=== PATIENT | female | born 1940 | race African-American/Black ===

== ENCOUNTER 2017-07-01 12:40 | Outpatient (CLI) | payer MEDICARE ==
[2017-07-01] MEDS ORDERED: Gadobenate Dimeglumine 529 MG/1 ML (20ML VIAL) ONE (14:34)
== END 2017-07-01 12:41 | disposition home or self-care (01) ==
LOC: BICMRI 12:40
PROVIDERS: ATTEND Internal Medicine
DX: K76.89 Other specified diseases of liver (principal); R93.3 Abnormal findings on diagnostic imaging of other parts of digestive tract; N28.1 Cyst of kidney, acquired
CPT/HCPCS: 71045; 74183; A9579

== ENCOUNTER 2017-08-21 07:35 | Day surgery (SDC) | payer MEDICARE ==
[2017-08-20 09:10] VITALS: BMI 26.5
[~2017-08-21 07:35] MED LIST: FLU VACC TS2017-18 (>65YR) 0.5 ML SYRINGE IM ONE
[2017-08-21 08:17] LABS: #Basophils 0.1 thou/uL (0.0-0.2); #Eosinphils 0.2 thou/uL (0.0-0.7); #Lymphocytes 2.1 thou/uL (1.20-3.40); #Monocytes 0.7 thou/uL (0.11-0.59); #Neutrophils 3.1 thou/uL (1.40-6.50); %Basophils 1.1 % (0.0-1.0); %Eosinophils 3.8 % (0.0-10.0); %Lymphocytes 33.5 % (21.0-51.0); %Monocytes 10.5 % (0.0-10.0); %Neutrophils 51.1 % (42.0-75.0); Hemoglobin 12.2 g/dL (12.0-16.0); Mean Corpuscular HGB CONC 31.8 g/dL (32.0-36.0); Mean Corpuscular Hemoglobin 29.2 pg (27.0-31.0); Mean Corpuscular Volume 92.1 fl (81.0-99.0); Mean Platelet Volume 7.6 fL (7.4-10.4); Platelet Count 340 thou/uL (130-400); RBC Distribution Width 12.9 % (11.5-14.5); Red Blood Cell (RBC) Count 4.18 mill/uL (4.20-5.40); White Blood Cell (WBC) Count 6.2 thou/uL (4.8-10.8)
[2017-08-21 08:23] LABS: INR-International Normal Ratio 1.2; PTT 38.4 SEC (22.9-36.1); Prothrombin Time 15.1 SEC (12.0-14.7)
[2017-08-21] MEDS ORDERED: Fentanyl 100 MCG/2 ML VIAL ONE (09:24)
[2017-08-21] MEDS ORDERED: Midazolam HCl 2 mg/2 ml Vial ONE (09:24)
[2017-08-21] MEDS ORDERED: Sodium Bicarbonate 2.5 MEQ/5 ML VIAL ONE (09:24)
[2017-08-21 11:18] VITALS: BP 134/62; TEMP 97.9
[2017-08-21 13:38] LABS: Ref Lab Test Ordered CEA BF
[2017-08-21 13:39] LABS: Ref Lab Test Ordered CA 19-9 BF
--- NOTE | 2017-08-21 14:06 | CT ---
CT GUIDED RIGHT HEPATIC LOBE CYST BIOPSY AND ASPIRATION: TECHNIQUE: Informed consent was obtained. A time out was performed. The patient was placed in the left lateral decubitus position on the CT gantry table. A pre-procedure CT was obtained for guidance purposes on ly. The site overlying the lateral aspect of the complex cystic mass within the right hepatic dome w as marked. This site was prepped and draped in the usual sterile fashion. The patient underwent conscious sedation under the guidance of the radiology nurse. The patient rece ived 25 mcg of IV Fentanyl and 0.5 mg of IV Versed. The biopsy site was anesthetized utilizing buffered 1% Lidocaine. Under CT fluoroscopic guidance, a 19 gauge trocar needle was guided down into the complex cystic mass. Attempts were made to core biop sy the edwards of the mass lesion, as well as the complex internal septations seen on MR evaluation at the [facility], dated 07/01/2017. The core samples proved to be unfruitful. No s ignificant soft tissue was obtained for the core samples. Attempt was then made to provide a fine ne edle aspirate of the material. There were 11 mL of slightly greenish fluid removed from the cyst. T here was some scattered soft tissue debris within the aspirate. An additional attempt was made at th e aspirate to remove some more solid tissue. A cluster of the retained solid debris was submitted in formalin. Two separate aspirates, for a total of 11 mL, of fluid was submitted for cytology, as wel l as fluid analysis of CA19-9. The patient tolerated the procedure without difficulty. Post procedu re images demonstrated a small amount of gas seen within the complex cystic lesion. FINDINGS: Complex cystic lesion involving the right hepatic dome, as seen on the MRI examination of the abdomen , dated 07/01/2017, from the [facility]. There are additional prominen t simple cysts involving the liver. There are prominent simple cysts involving the kidneys. There a re nonobstructing calculi bilaterally. There are scattered vascular calcifications. IMPRESSION: Successful CT guided fine needle aspirate of the complex cystic mass within the right hepatic dome. POS: [facility]
--- NOTE | 2017-08-26 11:49 | CT ---
CT GUIDED RIGHT HEPATIC LOBE CYST BIOPSY AND ASPIRATION: TECHNIQUE: Informed consent was obtained. A time out was performed. The patient was placed in the left lateral decubitus position on the CT gantry table. A pre-procedure CT was obtained for guidance purposes on ly. The site overlying the lateral aspect of the complex cystic mass within the right hepatic dome w as marked. This site was prepped and draped in the usual sterile fashion. The patient underwent conscious sedation under the guidance of the radiology nurse. The patient rece ived 25 mcg of IV Fentanyl and 0.5 mg of IV Versed. The biopsy site was anesthetized utilizing buffered 1% Lidocaine. Under CT fluoroscopic guidance, a 19 gauge trocar needle was guided down into the complex cystic mass. Attempts were made to core biop sy the edwards of the mass lesion, as well as the complex internal septations seen on MR evaluation at the [facility], dated 07/01/2017. The core samples proved to be unfruitful. No s ignificant soft tissue was obtained for the core samples. Attempt was then made to provide a fine ne edle aspirate of the material. There were 11 mL of slightly greenish fluid removed from the cyst. T here was some scattered soft tissue debris within the aspirate. An additional attempt was made at th e aspirate to remove some more solid tissue. A cluster of the retained solid debris was submitted in formalin. Two separate aspirates, for a total of 11 mL, of fluid was submitted for cytology, as wel l as fluid analysis of CA19-9. The patient tolerated the procedure without difficulty. Post procedu re images demonstrated a small amount of gas seen within the complex cystic lesion. FINDINGS: Complex cystic lesion involving the right hepatic dome, as seen on the MRI examination of the abdomen , dated 07/01/2017, from the [facility]. There are additional prominen t simple cysts involving the liver. There are prominent simple cysts involving the kidneys. There a re nonobstructing calculi bilaterally. There are scattered vascular calcifications. IMPRESSION: Successful CT guided fine needle aspirate of the complex cystic mass within the right hepatic dome.
== END 2017-08-21 11:50 | disposition home or self-care (01) ==
LOC: ULT 07:35
PROVIDERS: ATTEND Internal Medicine
PROC: 0FB13ZX Excision of Right Lobe Liver, Percutaneous Approach, Diagnostic (ICD-10-PCS; principal; 2017-08-21)
DX: K76.89 Other specified diseases of liver (principal); Z79.899 Other long term (current) drug therapy; R94.5 Abnormal results of liver function studies
CPT/HCPCS: 36415; 47000; 77012; 85025; 85610; 85730; 87070; 87205; 88173; 88304; 88305; J2250; J3010

== ENCOUNTER 2018-07-06 09:48 | Outpatient (CLI) | payer MEDICARE ==
[2018-07-06] MEDS ORDERED: Gadobenate Dimeglumine 529 MG/1 ML (20ML VIAL) ONE (13:17)
--- NOTE | 2018-07-06 14:49 | MRI ---
MRI ABDOMEN WITH AND WITHOUT CONTRAST: Date: 07/06/18 HISTORY: R93.3 abnormal findings on GI tract. COMPARISON: MRI abdomen from 12/25/17 and 07/01/17, as well as a percutaneous biopsy of 08/21/17. FINDINGS: There is no significant interval size increase of the complicated cysts of the right lobe of the live r, involving hepatic segments VII and VIII, measures up to 9.1 cm in transverse dimension x 7.3 cm in AP dimension x 6.7 cm craniocaudad dimension. No internal enhancement of the septations. There is a large cyst in hepatic segment Rosa Maria and IVb, which is simple, measuring up to 8.7 cm, causin g mass effect upon the common hepatic duct with mild intrahepatic biliary dilatation in both the righ t and left biliary system. There are multiple smaller hepatic cysts scattered throughout the liver wi thout enhancement. The aortic contour is nonaneurysmal. Moderate atherosclerotic plaque. There are multiple renal cysts. There is a small perisplenic lymph node. In the uncinate process, there are two separate subcentimeter T2 hyperintense foci which are unchange d from the comparison examination. Background marrow signal is similar. IMPRESSION: 1. Similar appearance to the hepatic cysts with the previously aspirated hepatic segment and VII cysts unchanged in size with internal septations and debris may be a ruptured echinococcal cyst. 2. Large cyst hepatic Rosa Maria and IVb causing mass effect upon the common hepatic duct with mild intrahe patic left and right-sided biliary dilatation. No extrahepatic biliary dilatation. 3. Renal cysts. 4. Subcentimeter T2 hyperintense foci at the pancreatic head and uncinate process are unchanged. Fol low-up pancreatic protocol MRI in 1 year recommended. See our white paper. POS: [facility]
== END 2018-07-06 09:49 | disposition home or self-care (01) ==
LOC: BICMRI 09:48
PROVIDERS: ATTEND Internal Medicine
DX: R93.3 Abnormal findings on diagnostic imaging of other parts of digestive tract (principal); K76.89 Other specified diseases of liver; N28.1 Cyst of kidney, acquired
CPT/HCPCS: 74183; 82565; A9577

== ENCOUNTER 2019-06-22 16:44 | Observation (INO) | payer MEDICARE ==
[2019-06-22] MEDS ORDERED: Aspirin Chewable 81 MG TAB ONE (17:27)
[2019-06-22 18:07] LABS: Troponin I 0.057 ng/mL (< 0.028)
[2019-06-22 19:39] VITALS: BMI 28.8
[2019-06-22 20:20] LABS: Troponin I 0.053 ng/mL (< 0.028)
[2019-06-22] MEDS ORDERED: Acetaminophen 325 MG TAB PO PRN (22:36)
[2019-06-22] MEDS ORDERED: Acetaminophen 650 MG Suppository PR PRN (22:36)
[2019-06-22] MEDS: Sodium Chloride 0.9% 1,000 ML IV SCH (23:00)
[2019-06-23 00:13] LABS: CKMB 1.5 ng/mL (0-6.6)
--- NOTE | 2019-06-23 01:23 | HP ---
TIME OF ASSESSMENT: 2199 CHIEF COMPLAINT: Syncope. HISTORY OF PRESENT ILLNESS: Ms. Iqbal is a very pleasant 78-year-old woman who presents to the emergency department following a syncopal episode. The patient states she had been ironing several jeans and became tired, therefore, sat down on the side of her bed and states she suddenly woke up on the floor. She states she is confident she fainted for "not even a minute." She states she banged her forehead against the bed frame. She was initially seen at [facility] where the head laceration was sutured. She had a CT of the head, which was unremarkable. The patient does not recall experiencing any preceding symptoms such as dizziness, lightheadedness, chest pain, or shortness of breath. She states she has felt well in herself in recent days. Has not had any recent fevers, chills, or night sweats. Her appetite has been very good. The patient states after getting up from the floor, she did become nauseated and vomited once. Has not had any issues with headaches, nausea, or vomiting since then. The patient states she feels back to her normal self. Reports having issues with syncope in the past, up to 4 episodes and states she follows regularly with Dr. Collier who she saw 2 weeks ago. She reports the cardiac loop recorder was interrogated and there were no abnormal events per Dr. Collier. In the ED, she had an EKG done which showed normal sinus rhythm with a heart rate of 66. She had laboratory studies done, which were notable for an elevated troponin of 0.062, second troponin was 0.057, and third troponin 0.053. Labs are otherwise notable for a normal white count of 8.1, hemoglobin was 10.7 which has reduced from baseline. Hematocrit 35.8, platelets 283. Sodium 141, potassium 4.4. Renal function slightly reduced from normal. BUN 23, creatinine 1.69, and GFR 35. GFR is usually in the mid 40s. LFTs unremarkable. Albumin 4.2. The patient was given 324 mg of aspirin due to the indeterminate troponin. She is being admitted for further monitoring and workup. The patient denies any complaints at this present time. States her appetite has been very good and she has not noted any urinary changes or bowel changes. Denies any melena or bright red blood per rectum. No diarrhea or constipation. All other review of systems are negative. The patient states she functions very independently and has fully mobile home without any assistive devices. PAST MEDICAL HISTORY: 1. Hyperlipidemia. 2. Hypertension. 3. "Leaky valve.". 4. History of syncope. PAST SURGICAL HISTORY: 1. Cardiac loop recorder. 2. Hysterectomy. SOCIAL HISTORY: The patient lives alone and is fully independent. Denies any tobacco use, alcohol consumption or illicit drug use. ALLERGIES: NO KNOWN DRUG ALLERGIES. CURRENT MEDICATIONS: 1. Amlodipine. 2. Aspirin. 3. Atorvastatin. 4. Benazepril/HCTZ. 5. Cholecalciferol. 6. Iron. PHYSICAL EXAMINATION: GENERAL: The patient appears thin, well developed, and in no acute distress. VITAL SIGNS: Temperature 98.2, pulse 71, respirations 16, O2 saturation 99% on room air, blood pressure 125/68. HEENT: Normocephalic. The patient with a laceration along the mid frontal hairline. No active bleeding. No swelling. No bruising. Sutures in place. No swelling or erythema. Extraocular movements intact. NECK: Supple. Full range of motion. No cervical spine tenderness. Oropharynx is clear. LUNGS: Clear to auscultation bilaterally without any wheezes, rales, or rhonchi. CARDIAC: Regular rate and rhythm. ABDOMEN: Soft, nontender, nondistended. No guarding or rigidity. No renal angle tenderness. EXTREMITIES: No lower leg swelling or edema. NEUROLOGIC: Alert and oriented x3. Speech normal. Facial movements normal. Facial sensation intact. Power 5/5 in all limbs. No neuro deficits on exam. SKIN: Warm and dry. INVESTIGATIONS: As mentioned above in the HPI. IMPRESSION AND PLAN: Ms. Iqbal is a very pleasant 78-year-old woman who is being admitted for management of the following. 1. Syncope. The patient sustained head injury and CT imaging done in the ED was unremarkable. The patient without any neuro deficits prior or following her syncopal scissor following the syncopal episode. She reports having issues with syncope in the past, but has been quite sometime. She has a loop recorder in place and recently seen by Dr. Collier 2 weeks ago and interrogation was unremarkable. Loop recorder will need to be interrogated again. We will continue cardiac monitoring. We will obtain 4th troponin. No prior troponins to compare to. We will add a BNP. We will obtain echo as patient feels it has been almost a year since the last one. We will add on TSH. 2. Acute on chronic renal insufficiency. Renal function has slightly further reduced from her baseline. We will give gentle hydration. This could be an underlying cause for her syncopal episode. We will continue to monitor her renal function. We will obtain orthostatic blood pressures. 3. Anemia. The patient with hemoglobin of 10.7. She is on iron supplements at home. It is lower than her baseline. We will check stool for occult blood. We will also obtain iron studies. 4. Hypertension. Monitor blood pressure. We will resume amlodipine only for now. 5. Hyperlipidemia. We will resume home medications once verified. 6. Code status. The patient is full code status. Surrogate decision maker is her , Edgardo Iqbal. Case to be discussed with attending for further recommendations. Job ID: [id number]
[2019-06-23 04:37] LABS: #Eosinphils 0.2 thou/uL (0.0-0.7); #Lymphocytes 2.3 thou/uL (1.20-3.40); #Monocytes 0.7 thou/uL (0.11-0.59); #Neutrophils 5.1 thou/uL (1.40-6.50); %Basophils 0.5 % (0.0-1.0); %Eosinophils 2.7 % (0.0-10.0); %Lymphocytes 27.5 % (21.0-51.0); %Monocytes 8.7 % (0.0-10.0); %Neutrophils 60.5 % (42.0-75.0); Hemoglobin 10.9 g/dL (12.0-16.0); Mean Corpuscular HGB CONC 31.1 g/dL (32.0-36.0); Mean Corpuscular Hemoglobin 26.5 pg (27.0-31.0); Mean Corpuscular Volume 85.3 fL (78.0-98.0); Platelet Count 318 thou/uL (130-400); RBC Distribution Width 13.6 % (11.5-14.5); Red Blood Cell (RBC) Count 4.12 mill/uL (4.20-5.40); White Blood Cell (WBC) Count 8.4 thou/uL (4.8-10.8)
[2019-06-23 05:02] LABS: Anion Gap 15 mmol/L (10-20); BUN (Urea Nitrogen) 25 mg/dL (9.8-20.1); Calc. Creatinine Clearance 36 mL/min (70-130); Calcium 9.3 mg/dL (7.8-10.44); Carbon Dioxide 24 mmol/L (23-31); Chloride 105 mmol/L (98-107); Estimated GFR-MDRD 43; Glucose 112 mg/dL (83-110); Iron 49 ug/dL (50-170); Iron Binding Capacity, Total 235 mcg/dL (265-497); Potassium 3.9 mmol/L (3.5-5.1); Sodium 140 mmol/L (136-145); Transferrin, Serum 188 mg/dL (173-360)
[2019-06-23 08:11] VITALS: TEMP 98.1
--- NOTE | 2019-06-23 08:37 | RAD ---
EXAM: Chest 2 views: HISTORY: Chest pain COMPARISON: None. FINDINGS: There is a normal-sized cardiomediastinal silhouette. A cardiac monitoring device projects of the le ft chest wall. There is no evidence of consolidation, mass, or pleural effusion. The bones are unremarkable. IMPRESSION: No evidence of acute cardiopulmonary disease
--- NOTE | 2019-06-23 08:50 | CT ---
PRELIMINARY REPORT/[facility]/EMERGENCY AFTER HOURS PROCEDURE: EXAM: CTA Chest with Intravenous Contrast CLINICAL HISTORY: F80, ELEVATED D-DIMER, PATIENT STATES SHE HAD A SYNCOPAL EPISODE YESTERDAY. DENIES CHEST PAIN OR SOB. EVAL FOR PE. TECHNIQUE: Axial CTA images of the chest with intravenous contrast. MIP reconstructed images were created and re viewed. CONTRAST: With; ISOVUE 370, 60ML COMPARISON: None provided. FINDINGS: PULMONARY ARTERIES There is no intraluminal filling defect suspicious for large or segmental PE. Phase of contrast limi ts assessment at the subsegmental level. AORTA No thoracic aortic aneurysm or dissection. Atherosclerotic calcification. LUNGS The lungs are clear. No pulmonary mass. No focal airspace consolidation. PLEURAL SPACES No pleural effusion. No pneumothorax. HEART AND MEDIASTINUM Four-chamber cardiac enlargement. No significant pericardial effusion. Coronary atherosclerosis. LYMPH NODES Calcified mediastinal lymph nodes compatible with sequelae of prior granulomatous or fungal disease. BONES No focal osseous abnormality or acute fracture. Multilevel degenerative changes of the spine. CHEST WALL AND UPPER ABDOMEN Multiple hepatic cysts, measuring up to 9.9 cm in the left hepatic lobe and up to 7.9 cm in the right hepatic lobe. Multiple bilateral renal cysts, measuring up to 3.5 cm in the left kidney. Implanted electronic device in the anterior left chest wall. IMPRESSION: 1. No evidence of PE within the limitations of this exam. 2. Cardiomegaly with coronary artery disease. 3. No acute pulmonary abnormality. 4. Large hepatic cysts. Correlate for symptoms. 5. Multiple renal cysts. ELECTRONICALLY SIGNED BY: Amador Chandler M.D. Jun 23, 2019 2:31:06 AM [employer] This report is intended for review by the ordering physician only, in accordance of law. If you recei ve this report in error, please call [facility] at [phone]. FINAL REPORT EMERGENCY AFTER HOURS CTA CHEST WITH CONTRAST: FINDINGS/IMPRESSION: I agree with the findings and impression given in the preliminary report per [facility] physici an. 1. No evidence of pulmonary thromboembolism. 2. Hepatic and renal cysts.
[2019-06-23] MEDS ORDERED: Ferrous Sulfate 325 MG TAB PO SCH (09:00)
[2019-06-23] MEDS ORDERED: Aspirin Chewable 81 MG TAB PO SCH (09:00)
[2019-06-23] MEDS ORDERED: Lisinopril/Hydrochlorothiazide 20/25 mg Tablet PO SCH (09:00)
[2019-06-23] MEDS ORDERED: Amlodipine 10 MG TAB PO SCH (09:00)
--- NOTE | 2019-06-23 09:23 | ULT ---
EXAM: Carotid ultrasound HISTORY: Syncope COMPARISON: None TECHNIQUE: Multiplanar grayscale and color Doppler images were obtained in a carotid ultrasound. Spec tral analysis of the Doppler waveforms were performed. FINDINGS: A small amount of calcified plaque is seen in the proximal left internal carotid artery. No significa nt plaque is seen in either common carotid artery. The Doppler waveforms are normal in the visualized vessels. Peak systolic velocity in the right internal carotid artery 78 cm/s. Peak systolic velocity in the right common carotid artery 79 cm/s. The right ICA/CCA ratio is 1.0. Peak systolic velocity in the left internal carotid artery 106 cm/s. Peak systolic velocity in the left common carotid artery 91 cm/s. The left ICA/CCA ratio is 1.2. Both vertebral arteries demonstrate antegrade flow without focal stenosis IMPRESSION: No evidence of hemodynamically significant stenosis.
[2019-06-23] MEDS ORDERED: Iopamidol-370 76% 500 ML 1 ML ONE (13:29)
[2019-06-23 13:33] VITALS: BP 150/67
[2019-06-23] MEDS: Sodium Chloride 0.9% 1,000 ML IV SCH (14:35)
--- NOTE | 2019-06-23 15:08 | DIS ---
DATE OF ADMISSION: 06/22/2019 DATE OF DISCHARGE: 06/23/2019 PRIMARY CARE PROVIDER: Dr. Mantilla. DISPOSITION: Discharged home. FINAL DIAGNOSES: 1. Syncope. 2. Hypertension. 3. Dyslipidemia. 4. Chronic kidney disease stage 3. DISCHARGE MEDICATIONS: Same as home medications; 1. Amlodipine 10 mg a day. 2. Atorvastatin 40 mg a day. 3. Aspirin 81 mg a day. 4. Iron 27 mg a day. 5. Benazepril/hydrochlorothiazide 20/25 once a day. ALLERGIES: NO KNOWN DRUG ALLERGIES. CODE STATUS: Full. PENDING AT TIME OF DISCHARGE: Nothing. DIET: Heart healthy. HOSPITAL COURSE: The patient was admitted to [facility] after episode of syncope. She had a history of syncope, had a loop recorder. Her laboratory was really unremarkable except for troponin 0.057, 0.053, 0.054, thought to be secondary to chronic kidney disease stage 3. Creatinine 1.42, BUN 25. Lytes balanced. TSH 1.7, folate 17. CBC; hemoglobin 10.9, white count 8.4, platelet count 318,000. Chest x-ray revealed no acute findings. CT of the chest revealed no evidence for PE. Carotid Dopplers are clean with no stenosis. Currently, the patient's vital signs are stable. Cardiorespiratory exam is normal. I have discussed the situation with Dr. Collier. Her loop recorder has been interrogated and records no bradycardia, etc. He is agreeable with her being discharged home. He will follow up with her when he is in the [facility] in 3 weeks. She has been told to see her PCP in 3 days for followup and to have her sutures out seven days after they were put in. She has sutures in her scalp that was sutured in [place]. Job ID: [id number]
[2019-06-23] MEDS ORDERED: Atorvastatin Calcium 40 MG TAB PO SCH (21:00)
== END 2019-06-23 15:27 | disposition home or self-care (01) ==
LOC: ERS 16:44 → 2SW 19:29
PROVIDERS: ADMIT Emergency Medicine; ATTEND Emergency Medicine
DX: R55 Syncope and collapse (principal); I12.9 Hypertensive chronic kidney disease with stage 1 through stage 4 chronic kidney disease, or unspecified chronic kidney disease; N18.3 Chronic kidney disease, stage 3 (moderate); N17.9 Acute kidney failure, unspecified; D63.1 Anemia in chronic kidney disease; E78.5 Hyperlipidemia, unspecified; I25.10 Atherosclerotic heart disease of native coronary artery without angina pectoris; K76.89 Other specified diseases of liver; Q61.02 Congenital multiple renal cysts; Z79.82 Long term (current) use of aspirin; Z79.899 Other long term (current) drug therapy; Z95.818 Presence of other cardiac implants and grafts
CPT/HCPCS: 36415; 71046; 71275; 80048; 82553; 82607; 82746; 83540; 83550; 84443; 84466; 85025; 85379; 93005; 93880; 96360; 96361; G0378; Q9967

== ENCOUNTER → 2023-07-23 | Day surgery (SDC) | payer MEDICARE, OTHER ==
[~2023-07-23] MED LIST changes: +ADMIXTURE FEE IVPB SCH; +CEFAZOLIN 2 GM in Sodium Chloride 0.9% 100 ML IVPB SCH; +DOXYCYCLINE IVPB SCH; -FLU VACC TS2017-18 (>65YR) 0.5 ML SYRINGE IM ONE; +Iopamidol 100 ML FS ONE; +Iopamidol 30 ML ONE; +Ipratropium/Albuterol 3 ML NEB ONE; +Lidocaine 1% (PF) 30 ML VIAL ONE; +Lidocaine 1% PF 5 ML VIAL ONE; +Lidocaine 1% w/Epinephrine 1:100K 20 ML VIAL ONE; +Sodium Bicarbonate 2.5 MEQ/5 ML SDV ONE; +Sodium Chloride 0.9% 500 ML ONE; +fentaNYL 50 mcg/mL 1 mL Vial ONE
[2023-07-23 08:00] LABS: #Basophils 0.1 thou/uL (0.0-0.2); #Monocytes 1.1 thou/uL (0.11-0.59); #Neutrophils 7.5 thou/uL (1.40-6.50); %Basophils 0.6 % (0.0-1.0); %Eosinophils 0.4 % (0.0-10.0); %Lymphocytes 13.9 % (21.0-51.0); %Monocytes 10.6 % (0.0-10.0); %Neutrophils 74.2 % (42.0-75.0); Hematocrit 29.6 % (36.0-47.0); Hemoglobin 9.5 g/dL (12.0-16.0); Mean Corpuscular HGB CONC 32.1 g/dL (32.0-36.0); Mean Corpuscular Hemoglobin 26.7 pg (27.0-31.0); Mean Corpuscular Volume 83.1 fl (78.0-98.0); Mean Platelet Volume 9.8 fL (7.4-10.4); Platelet Count 406 10x3/uL (130-400); RBC Distribution Width 15.2 % (11.5-14.5); Red Blood Cell (RBC) Count 3.56 mill/uL (4.20-5.40); White Blood Cell (WBC) Count 10.2 10x3/uL (4.8-10.8)
[2023-07-23 08:12] LABS: INR-International Normal Ratio 1.2; Prothrombin Time 15.4 sec (12.0-14.7)
[2023-07-23 08:13] LABS: PTT 35.9 sec (22.9-36.1)
== END ==
LOC: SPEC 07:39
PROVIDERS: ATTEND Internal Medicine
PROC: 0F923ZZ Drainage of Left Lobe Liver, Percutaneous Approach (ICD-10-PCS; principal; 2023-07-23)
DX: R93.3 Abnormal findings on diagnostic imaging of other parts of digestive tract (principal); D64.9 Anemia, unspecified; I10 Essential (primary) hypertension; D12.3 Benign neoplasm of transverse colon; E78.5 Hyperlipidemia, unspecified; Z79.899 Other long term (current) drug therapy; K76.89 Other specified diseases of liver
CPT/HCPCS: 47010; 76942; 82378; 85025; 85610; 85730; 87070; 87075; 87205; J3010; J2001; J3490; J7030; J7620; Q9967

== ENCOUNTER 2025-01-02 07:51 | Inpatient (IN) | payer MEDICARE ==
[2025-01-02 08:38] LABS: #Basophils 0.06 10x3/uL (0.0-0.2); #Eosinophils Less than 0.03 10x3/uL (0.0-0.7); #Monocytes 0.38 10x3/uL (0.11-0.59); #Neutrophils 8.60 10x3/uL (1.40-6.50); %Basophils 0.6 % (0.0-1.0); %Eosinophils 0.2 % (0.0-10.0); %Lymphocytes 11.1 % (21.0-51.0); %Monocytes 3.7 % (0.0-10.0); %Neutrophils 84.0 % (42.0-75.0); Hematocrit 30.3 % (36.0-47.0); Hemoglobin 9.9 g/dL (12.0-16.0); Mean Corpuscular Hemoglobin 27.7 pg (27.0-31.0); Mean Corpuscular Volume 84.9 fL (78.0-98.0); Platelet Count 385 10x3/uL (130-400); Red Blood Cell (RBC) Count 3.57 mill/uL (4.20-5.40); White Blood Cell (WBC) Count 10.24 10x3/uL (4.8-10.8)
[2025-01-02 09:02] LABS: ALT (SGPT) 16 U/L (Less than 34); AST (SGOT) 29 U/L (11-34); Albumin 3.9 g/dL (3.1-4.5); Alkaline Phosphatase 89 U/L (40-110); Anion Gap 15 mmol/L (10-20); BUN (Urea Nitrogen) 27 mg/dL (9.8-20.1); Bilirubin, Total 0.5 mg/dL (0.3-1.2); Calc. Creatinine Clearance 0 mL/min (70-130); Calcium 8.3 mg/dL (7.8-10.44); Carbon Dioxide 18 mmol/L (23-31); Chloride 104 mmol/L (98-107); Globulin 3.8 g/dL (2.4-3.5); Glucose 173 mg/dL (83-110); Magnesium 1.9 mg/dL (1.6-2.6); Potassium 5.0 mmol/L (3.5-5.1); Sodium 132 mmol/L (136-145)
[2025-01-02 09:10] LABS: Troponin I 0.899 ng/mL (< 0.028)
[2025-01-02] MEDS ORDERED: Furosemide 40 MG (4 mL) VIAL ONE (10:02)
[2025-01-02] MEDS ORDERED: Enoxaparin 80 MG (0.8 mL) SYRINGE ONE (10:02)
[2025-01-02 11:51] VITALS: BMI 27.6
[2025-01-02 13:04] LABS: Troponin I 0.956 ng/mL (< 0.028)
[2025-01-02 14:56] LABS: Troponin I 0.966 ng/mL (< 0.028)
[2025-01-02] MEDS: Furosemide 20 MG (2 mL) VIAL SLOW IVP SCH (15:12)
[2025-01-02] MEDS: Ondansetron PF 4 MG/2 ML Vial IVP PRN (15:56)
[2025-01-02] MEDS: Furosemide 40 MG (4 mL) VIAL SLOW IVP SCH (18:50)
[2025-01-02] MEDS: Famotidine 20 MG TAB PO SCH (20:47)
[2025-01-03 04:39] LABS: #Basophils 0.08 10x3/uL (0.0-0.2); #Eosinophils 0.04 10x3/uL (0.0-0.7); #Monocytes 0.94 10x3/uL (0.11-0.59); #Neutrophils 6.60 10x3/uL (1.40-6.50); %Basophils 0.8 % (0.0-1.0); %Eosinophils 0.4 % (0.0-10.0); %Lymphocytes 22.4 % (21.0-51.0); %Monocytes 9.5 % (0.0-10.0); %Neutrophils 66.6 % (42.0-75.0); Hematocrit 33.2 % (36.0-47.0); Hemoglobin 10.4 g/dL (12.0-16.0); Mean Corpuscular Hemoglobin 27.2 pg (27.0-31.0); Mean Corpuscular Volume 86.9 fL (78.0-98.0); Platelet Count 393 10x3/uL (130-400); Red Blood Cell (RBC) Count 3.82 mill/uL (4.20-5.40); White Blood Cell (WBC) Count 9.91 10x3/uL (4.8-10.8)
[2025-01-03 04:54] LABS: Anion Gap 21 mmol/L (10-20); BUN (Urea Nitrogen) 32 mg/dL (9.8-20.1); Calc. Creatinine Clearance 21 mL/min (70-130); Calcium 9.1 mg/dL (7.8-10.44); Carbon Dioxide 18 mmol/L (23-31); Chloride 102 mmol/L (98-107); Glucose 118 mg/dL (83-110); Magnesium 2.0 mg/dL (1.6-2.6); Potassium 3.7 mmol/L (3.5-5.1); Sodium 137 mmol/L (136-145)
[2025-01-03] MEDS: Furosemide 40 MG (4 mL) VIAL SLOW IVP SCH (07:23)
[2025-01-03] MEDS: Aspirin Chewable 81 MG TAB PO SCH (09:55)
[2025-01-03] MEDS: Cholecalciferol 1,000 UNITS (25 MCG) TAB PO SCH (09:55)
[2025-01-03] MEDS: Ferrous Sulfate 325 MG TAB PO SCH (09:55)
[2025-01-03] MEDS: Enoxaparin 80 MG (0.8 mL) SYRINGE SC SCH (09:56)
[2025-01-04 04:12] LABS: Hematocrit 29.9 % (36.0-47.0); Hemoglobin 9.4 g/dL (12.0-16.0)
[2025-01-04 04:41] LABS: Anion Gap 15 mmol/L (10-20); BUN (Urea Nitrogen) 31 mg/dL (9.8-20.1); Calc. Creatinine Clearance 21 mL/min (70-130); Calcium 7.9 mg/dL (7.8-10.44); Carbon Dioxide 21 mmol/L (23-31); Chloride 106 mmol/L (98-107); Glucose 104 mg/dL (83-110); Potassium 3.6 mmol/L (3.5-5.1); Sodium 138 mmol/L (136-145)
[2025-01-04] MEDS: Metoprolol Succinate XL 25 MG ER.TAB PO SCH (11:36)
[2025-01-04] MEDS: Acetaminophen 500 MG TAB PO PRN (21:57)
[2025-01-05 05:36] LABS: Anion Gap 16 mmol/L (10-20); BUN (Urea Nitrogen) 30 mg/dL (9.8-20.1); Calc. Creatinine Clearance 23 mL/min (70-130); Calcium 8.5 mg/dL (7.8-10.44); Carbon Dioxide 21 mmol/L (23-31); Chloride 107 mmol/L (98-107); Glucose 105 mg/dL (83-110); Potassium 3.5 mmol/L (3.5-5.1); Sodium 140 mmol/L (136-145)
[2025-01-05] MEDS: Metoprolol Succinate XL 25 MG ER.TAB PO SCH (11:00)
[2025-01-06 05:10] LABS: Anion Gap 16 mmol/L (10-20); BUN (Urea Nitrogen) 23 mg/dL (9.8-20.1); Calc. Creatinine Clearance 25 mL/min (70-130); Calcium 8.8 mg/dL (7.8-10.44); Carbon Dioxide 20 mmol/L (23-31); Chloride 104 mmol/L (98-107); Glucose 95 mg/dL (83-110); Potassium 3.4 mmol/L (3.5-5.1); Sodium 137 mmol/L (136-145)
[2025-01-06] MEDS ORDERED: PROPOFOL 20 ML ONE (12:19)
[2025-01-06] MEDS: Amiodarone 200 MG TAB PO SCH (20:59)
[2025-01-06] MEDS: hydrALAZINE 20 MG/ML VIAL SLOW IVP PRN (21:00)
[2025-01-07 04:18] LABS: Anion Gap 14 mmol/L (10-20); BUN (Urea Nitrogen) 28 mg/dL (9.8-20.1); Calc. Creatinine Clearance 25 mL/min (70-130); Calcium 8.4 mg/dL (7.8-10.44); Carbon Dioxide 20 mmol/L (23-31); Chloride 107 mmol/L (98-107); Glucose 93 mg/dL (83-110); Potassium 3.4 mmol/L (3.5-5.1); Sodium 138 mmol/L (136-145)
[2025-01-07] MEDS ORDERED: Communication Order-Pharmacy FS SCH (06:00)
[2025-01-07] MEDS ORDERED: Adenosine 6 mg (2 mL) VIAL ONE (07:08)
[2025-01-07] MEDS ORDERED: Nitroglycerin 50 MG/250 ML BOT 250 ML ONE (07:08)
[2025-01-07] MEDS ORDERED: Heparin 10,000 UNITS/ 10 ML VIAL ONE ×2 (07:08→08:46)
[2025-01-07] MEDS ORDERED: Lidocaine 1% (PF) 30 ML VIAL ONE (07:08)
[2025-01-07] MEDS ORDERED: PHENYLEPHRINE-NS 100 MCG/ML 10 ML SYRINGE ONE (07:08)
[2025-01-07] MEDS ORDERED: hydrALAZINE 20 MG/ML VIAL ONE (08:32)
[2025-01-07] MEDS ORDERED: Nitroglycerin 0.4 MG TAB (25 Tab Bottle) SL PRN (09:25)
[2025-01-07] MEDS: Colchicine 0.6 MG TAB PO SCH (11:15)
[2025-01-07] MEDS ORDERED: Vancomycin Dose by Levels Sliding Scale (Wt <71) FS SCH (11:45)
[2025-01-07] MEDS ORDERED: Iopamidol 370 76% 100 ML VIAL ONE (12:03)
[2025-01-07] MEDS: Vancomycin 1 GM in Sodium Chloride 0.9% 250 ML 250 ML IVPB SCH (12:51)
[2025-01-07] MEDS: Vancomycin 1.25 GM / NS 250 ML VIAL-2-BAG IVPB SCH (13:24)
[2025-01-07] MEDS: cefTRIAXone\\ROCEPHIN 1 GM in Sodium Chloride 0.9% 100 ML IVPB SCH (15:34)
[2025-01-08 04:09] LABS: #Basophils 0.05 10x3/uL (0.0-0.2); #Eosinophils 0.03 10x3/uL (0.0-0.7); #Monocytes 1.44 10x3/uL (0.11-0.59); #Neutrophils 8.40 10x3/uL (1.40-6.50); %Basophils 0.4 % (0.0-1.0); %Eosinophils 0.3 % (0.0-10.0); %Lymphocytes 13.6 % (21.0-51.0); %Monocytes 12.5 % (0.0-10.0); %Neutrophils 72.9 % (42.0-75.0); Hematocrit 30.9 % (36.0-47.0); Hemoglobin 9.7 g/dL (12.0-16.0); Mean Corpuscular Hemoglobin 27.0 pg (27.0-31.0); Mean Corpuscular Volume 86.1 fL (78.0-98.0); Platelet Count 340 10x3/uL (130-400); Red Blood Cell (RBC) Count 3.59 mill/uL (4.20-5.40); White Blood Cell (WBC) Count 11.53 10x3/uL (4.8-10.8)
[2025-01-08 04:28] LABS: ALT (SGPT) 17 U/L (Less than 34); AST (SGOT) 33 U/L (11-34); Albumin 2.9 g/dL (3.1-4.5); Alkaline Phosphatase 70 U/L (40-110); Anion Gap 17 mmol/L (10-20); BUN (Urea Nitrogen) 30 mg/dL (9.8-20.1); Bilirubin, Total 0.4 mg/dL (0.3-1.2); Calc. Creatinine Clearance 23 mL/min (70-130); Calcium 8.4 mg/dL (7.8-10.44); Carbon Dioxide 17 mmol/L (23-31); Chloride 109 mmol/L (98-107); Globulin 3.9 g/dL (2.4-3.5); Glucose 112 mg/dL (83-110); Potassium 3.6 mmol/L (3.5-5.1); Sodium 139 mmol/L (136-145)
[2025-01-08 11:24] LABS: Vancomycin, Trough 15.4 ug/mL
[2025-01-08 18:21] LABS: Anion Gap 18 mmol/L (10-20); BUN (Urea Nitrogen) 34 mg/dL (9.8-20.1); Calc. Creatinine Clearance 25 mL/min (70-130); Calcium 8.8 mg/dL (7.8-10.44); Carbon Dioxide 16 mmol/L (23-31); Chloride 105 mmol/L (98-107); Glucose 128 mg/dL (83-110); Potassium 3.8 mmol/L (3.5-5.1); Sodium 135 mmol/L (136-145)
[2025-01-09 04:20] LABS: #Basophils 0.05 10x3/uL (0.0-0.2); #Eosinophils 0.21 10x3/uL (0.0-0.7); #Monocytes 1.17 10x3/uL (0.11-0.59); #Neutrophils 6.81 10x3/uL (1.40-6.50); %Basophils 0.5 % (0.0-1.0); %Eosinophils 2.1 % (0.0-10.0); %Lymphocytes 17.5 % (21.0-51.0); %Monocytes 11.7 % (0.0-10.0); %Neutrophils 67.9 % (42.0-75.0); Hematocrit 28.8 % (36.0-47.0); Hemoglobin 9.1 g/dL (12.0-16.0); Mean Corpuscular Hemoglobin 27.2 pg (27.0-31.0); Mean Corpuscular Volume 86.0 fL (78.0-98.0); Platelet Count 361 10x3/uL (130-400); Red Blood Cell (RBC) Count 3.35 mill/uL (4.20-5.40); White Blood Cell (WBC) Count 10.03 10x3/uL (4.8-10.8)
[2025-01-09 04:39] LABS: Anion Gap 16 mmol/L (10-20); BUN (Urea Nitrogen) 34 mg/dL (9.8-20.1); Calc. Creatinine Clearance 23 mL/min (70-130); Calcium 8.4 mg/dL (7.8-10.44); Carbon Dioxide 18 mmol/L (23-31); Chloride 110 mmol/L (98-107); Glucose 107 mg/dL (83-110); Potassium 3.7 mmol/L (3.5-5.1); Sodium 140 mmol/L (136-145)
[2025-01-09 06:43] LABS: Magnesium 2.2 mg/dL (1.6-2.6)
[2025-01-09] MEDS ORDERED: Lisinopril 20 MG TAB PO SCH (09:00)
[2025-01-09 11:52] VITALS: BP 161/62; TEMP 98.1
[2025-01-09] MEDS ORDERED: Cephalexin 250 MG CAP PO SCH (14:00)
[2025-01-13] MEDS ORDERED: Amiodarone 200 MG TAB PO SCH (09:00)
== END 2025-01-09 15:34 | disposition home or self-care (01) | DRG 321 ==
LOC: ERS 07:51 → PCU 09:58
PROVIDERS: ADMIT Family Medicine; ATTEND Student in an Organized Health Care Education/Training Program
PROC: 027034Z Dilation of Coronary Artery, One Artery with Drug-eluting Intraluminal Device, Percutaneous Approach (ICD-10-PCS; principal; 2025-01-07)
DX: I47.29 Other ventricular tachycardia (principal); I21.A1 Myocardial infarction type 2; I50.33 Acute on chronic diastolic (congestive) heart failure; E87.1 Hypo-osmolality and hyponatremia; I13.0 Hypertensive heart and chronic kidney disease with heart failure and stage 1 through stage 4 chronic kidney disease, or unspecified chronic kidney disease; N17.9 Acute kidney failure, unspecified; L03.114 Cellulitis of left upper limb; E87.20 Acidosis, unspecified; I49.9 Cardiac arrhythmia, unspecified; I25.10 Atherosclerotic heart disease of native coronary artery without angina pectoris; M10.9 Gout, unspecified; I34.0 Nonrheumatic mitral (valve) insufficiency; E78.5 Hyperlipidemia, unspecified; N18.30 Chronic kidney disease, stage 3 unspecified; D64.9 Anemia, unspecified; Z98.890 Other specified postprocedural states; Z90.79 Acquired absence of other genital organ(s); Z79.899 Other long term (current) drug therapy; Z79.82 Long term (current) use of aspirin
CPT/HCPCS: 36415; 71250; 74177; 80048; 80053; 80202; 83735; 83880; 84443; 84550; 85014; 85018; 85025; 85347; 87081; 92928; 93005; 93010; 93306; 93312; 93458; 93798; 96365; 96366; 96372; 96375; 96376; 97139; 99152; 99153; C1725; C1769; C1874; C1887; C1894; C9600; J0153; J0282; J0360; J0461; J0696; J1644; J1650; J1940; J2250; J2405; J2704; J3010; J3373; J7030; J7050; J7070; Q9967